=== PATIENT | male | born 1955 | race Caucasian/White ===

== ENCOUNTER 2018-05-23 16:16 | Emergency (ER) | payer OTHER ==
[2018-05-23] MEDS ORDERED: SODIUM CHLORIDE 0.9% 500 ML INFUS.BAG IV ONE (16:23)
--- NOTE | 2018-05-23 16:30 | PDOC ---
History of Present Illness - General Stated Complaint: HYPERTENSION Time Seen by Provider: 05/23/18 16:20 History Source: Patient, EMS Exam Limitations: No Limitations - History of Present Illness Initial Comments: 05/23/18 16:27 This is a 63 YOM with h/o liver, colon, and renal CA (last chemo was in February, on oxycontin for chronic pain), colostomy, nephrostomy, biliary drain, toxic megacolon with perforation, and ulcerative colitis with prior surgical intervention, who p/w SOB since last night without cough, wheezing, difficulty laying down flat, pain, f/c/n/v, black/bloody/white stool, or other symptoms. He has no reported orthopnea. The patient explains that his eyes and skin are always yellow but this is worse than normal over the past 2 days. EMS expressed concern that his BP was 80/50 and they were unable to get an accurate-looking pulse ox on him, so they placed him on the non-rebreather en route. Past History - Past Medical History Allergies/Adverse Reactions: Allergies Allergy/AdvReac Type Severity Reaction Status Date / Time No Known Allergies Allergy Verified 05/23/18 17:45 Home Medications: Ambulatory Orders Unobtainable 04/21/15 GI Disorders: (ulcerative colitis) - Suicide/Smoking/Psychosocial Hx Smoking History: Never smoked Have you smoked in the past 12 months: No Hx Alcohol Use: No Drug/Substance Use Hx: No Substance Use Type: None Hx Substance Use Treatment: No Review of Systems - Review of Systems Able to Perform ROS?: Yes Constitutional: No: Chills, Fever, Unexplained wgt Loss HEENTM: No: Nose Congestion, Throat Pain Respiratory: Yes: Shortness of Breath. No: Cough Cardiac (ROS): No: Chest Pain, Palpitations ABD/GI: No: Constipated, Diarrhea, Nausea, Vomiting : No: Burning, Dysuria Musculoskeletal: No: Back Pain, Neck Pain Integumentary: No: Bruising, Rash Neurological: No: Headache, Numbness, Tingling, Weakness, Dizziness Endocrine: No: Unexplained Weight Gain, Unexplained Weight Loss Procedures - Central Line Central Line Lumen: triple Central Line Position: femoral (L) Anesthesia: 1% Lidocaine Amount of anesthesia (ccs): 4 Complications: none Post Central Line Insertion: sutured, good blood return Progress: Patient tolerated well Heart Score/ECG Review #1 05/23/18 16:44 Sinus tachycardia, rate 104, normal axis and intervals, no ST-T changes ED Treatment Course - LABORATORY CBC & Chemistry Diagram: 05/23/18 17:00 05/23/18 17:00 - RADIOLOGY Radiology Studies Ordered: Category Date Time Status CHEST X-RAY PORTABLE* [RAD] Stat Radiology 05/23/18 16:20 Ordered Medical Decision Making - Medical Decision Making 05/23/18 16:31 Pt with presents with SOB in the setting of jaundice, malaise, hypotension notes by EMS. Initial Vital Signs Temp Pulse Resp BP Pulse Ox 97.7 F 105 H 22 H 78/58 L 100 05/23/18 16:20 05/23/18 16:20 05/23/18 16:20 05/23/18 16:20 05/23/18 16:20 Exam: As noted in Physical Exam section. DDX IBNLT: viral (ABCDE), toxins (e.g. alcohol/acetaminophen/ cap mushroom) , autoimmune, biliary tract obstruction, fatty liver disease, cirrhosis (e.g. h/ o EtOH dependence or HCC), SBP, hemolysis W/U ordered: CBCD CMP Mg Phos Coags T&S Ammonia UA UCx EKG CXR TX ordered: IVF, Vancomycin, Zosyn EKG: Reviewed; results as noted in ECG Review section. CXR: Nothing acute on my preliminary read. Laboratory Tests 05/23/18 05/23/18 05/23/18 17:00 17:00 17:00 WBC 21.8 H RBC 3.61 L Hgb 10.6 L Hct 31.0 L D MCV 85.9 MCH 29.3 MCHC 34.1 RDW 19.7 H Plt Count 90 L D MPV 10.6 D Absolute Neuts (auto) 20.7 H Neutrophils % 94.8 H D Neutrophils % (Manual) 88.0 H Band Neutrophils % 6.0 Lymphocytes % 0.9 L Lymphocytes % (Manual) 2.0 L Monocytes % 3.5 L Monocytes % (Manual) 4 Eosinophils % 0.5 Basophils % 0.3 Nucleated RBC % 0 Hypochromia 1+ Platelet Estimate Decreased Anisocytosis 1+ Microcytosis 1+ PT with INR 24.70 H INR 2.08 H PTT (Actin FS) 34.4 Sodium 138 Potassium 4.1 Chloride 95 L Carbon Dioxide 21 Anion Gap 22 H BUN 71 H Creatinine 4.9 H Creat Clearance w eGFR 12.10 Random Glucose 150 H Lactic Acid Calcium 10.3 H Total Bilirubin 20.1 H* AST 400 H ALT 221 H Alkaline Phosphatase 325 H Ammonia Creatine Kinase 439 H Creatine Kinase Index 1.4 CK-MB (CK-2) Cancelled Troponin I Total Protein 6.5 Albumin 2.1 L Blood Type Antibody Screen 05/23/18 05/23/18 05/23/18 17:00 17:00 17:00 WBC RBC Hgb Hct MCV MCH MCHC RDW Plt Count MPV Absolute Neuts (auto) Neutrophils % Neutrophils % (Manual) Band Neutrophils % Lymphocytes % Lymphocytes % (Manual) Monocytes % Monocytes % (Manual) Eosinophils % Basophils % Nucleated RBC % Hypochromia Platelet Estimate Anisocytosis Microcytosis PT with INR INR PTT (Actin FS) Sodium Potassium Chloride Carbon Dioxide Anion Gap BUN Creatinine Creat Clearance w eGFR Random Glucose Lactic Acid 5.0 H* Calcium Total Bilirubin AST ALT Alkaline Phosphatase Ammonia Creatine Kinase Creatine Kinase Index CK-MB (CK-2) Troponin I 0.03 Total Protein Albumin Blood Type A POSITIVE Antibody Screen Positive H 05/23/18 05/23/18 17:00 17:00 WBC RBC Hgb Hct MCV MCH MCHC RDW Plt Count MPV Absolute Neuts (auto) Neutrophils % Neutrophils % (Manual) Band Neutrophils % Lymphocytes % Lymphocytes % (Manual) Monocytes % Monocytes % (Manual) Eosinophils % Basophils % Nucleated RBC % Hypochromia Platelet Estimate Anisocytosis Microcytosis PT with INR INR PTT (Actin FS) Sodium Potassium Chloride Carbon Dioxide Anion Gap BUN Creatinine Creat Clearance w eGFR Random Glucose Lactic Acid Calcium Total Bilirubin AST ALT Alkaline Phosphatase Ammonia < 10 L Creatine Kinase Creatine Kinase Index CK-MB (CK-2) Cancelled Troponin I Total Protein Albumin Blood Type Antibody Screen Reassessment: Patient states unchanged, exam unchanged. Vital Signs Temperature 97.5 F L 05/23/18 19:02 Pulse Rate 98 H 05/23/18 19:02 Respiratory Rate 16 05/23/18 19:02 Blood Pressure 82/66 L 05/23/18 19:02 O2 Sat by Pulse Oximetry (%) 100 05/23/18 19:02 Lt femoral vein CVC placed without issue, good blood return, flushes, see Procedures section. The Pt is unsafe for discharge at this time. They require further hospital observation, workup, and treatment. 05/23/18 19:11 Spoke with oncology on-call provider Michele Quinteros. Recommends ED-ED transfer and he will call the [facility] ED to inform them to expect the patient. 05/23/18 19:[address] Palumbo who accepts patient in transfer. Pt to be transferred to: [facility] ED Pt accepted in transfer to: Dr. Palumbo Patient informed and consents to transfer. Transfer paperwork completed and signed by all indicated parties. 05/23/18 20:18 BP is 82/64, 99% on RA, HR 96 at this time. EMS crew arrives and transfers Pt to ambulance without issue. Vital Signs Temperature 98.2 F 05/23/18 20:34 Pulse Rate 95 H 05/23/18 20:34 Respiratory Rate 20 05/23/18 20:34 Blood Pressure 82/64 L 05/23/18 20:34 O2 Sat by Pulse Oximetry (%) 100 05/23/18 20:34 *DC/Admit/Observation/Transfer Diagnosis at time of Disposition: Jaundice, SOB (shortness of breath), Metastatic cancer Sepsis Qualifiers: Sepsis type: sepsis due to unspecified organism Qualified Code(s): A41.9 - Sepsis, unspecified organism - Discharge Dispostion Disposition: TRANSFER ACUTE CARE/OTHER HOSP Condition at time of disposition: Guarded - Referrals Referrals: Travon Weaver MS [Primary Care Provider] - - Patient Instructions - Post Discharge Activity - Transfer to Acute Care Facility Receiving Facility: [facility] Accepting Physician:: Dr. Palumbo
--- NOTE | 2018-05-23 16:38 | PDOC ---
Attending Attestation - Resident Resident Name: Judith Gutiérrez - ED Attending Attestation I have performed the following: I have examined & evaluated the patient, The case was reviewed & discussed with the resident, I agree w/resident's findings & plan, Exceptions are as noted - HPI HPI: 63 yo M history liver, colon, and renal CA, colostomy, nephrostomy, biliary drain, UC presents with SOB since last night. Worse with lying flat. Denies abd pain, swelling, f/c, N/V/D. Hypotensive en route with EMS. - Physicial Exam PE: GENERAL: Awake, alert, and fully oriented. Appears ill. +Jaundice. HEAD: No signs of trauma EYES: PERRLA, EOMI, conjunctiva clear. +Scleral icterus. ENT: Auricles normal inspection, hearing grossly normal, nares patent, oropharynx clear without exudates. Dry mucosa NECK: Normal ROM, supple, no lymphadenopathy, JVD, or masses LUNGS: Breath sounds equal, clear to auscultation bilaterally. No wheezes, and no crackles HEART: Regular rate and rhythm, normal S1 and S2, no murmurs, rubs or gallops ABDOMEN: Soft, nontender, normoactive bowel sounds. No guarding, no rebound. No masses. +LLQ colostomy, +watery brown stool in the bag. +Prior stoma to the L mid-abdomen. EXTREMITIES: Normal range of motion, no edema. No clubbing or cyanosis. No cords, erythema, or tenderness NEUROLOGICAL: Cranial nerves II through XII grossly intact. Normal speech. Motor and sensation grossly intact. SKIN: Warm, Dry, normal turgor, no rashes. - Medical Decision Making 05/23/18 16:53 Pt with complex PMH presenting with hypotension. Sepsis workup initiated. Will access port to obtain blood and give IVF, but will also place femoral triple lumen for resuscitation.
[2018-05-23 17:20] LABS: BASO % 0.3 % (0-2.0); EOS % 0.5 % (0-4.5); HEMOGLOBIN 10.6 GM/dL (11.7-16.9); LYMPH % 0.9 % (8-40); MCH 29.3 pg (25.7-33.7); MCHC 34.1 g/dl (32.0-35.9); MEAN CELL VOLUME 85.9 fl (80-96); MEAN PLT VOLUME 10.6 fl (7.5-11.1); MONO % 3.5 % (3.8-10.2); NEUT % 94.8 % (42.8-82.8); PLATELET COUNT 90 K/MM3 (134-434); RBC 3.61 M/mm3 (4.00-5.60); RDW 19.7 % (11.9-15.9); WHITE BLOOD COUNT 21.8 K/mm3 (4.0-10.0)
[2018-05-23 17:34] LABS: INR 2.08 (0.83-1.09); PROTHROMBIN TIME (PATIENT) 24.7 SEC (9.7-13.0)
[2018-05-23 17:37] LABS: ACTIVATED PTT 34.4 SECONDS (25.2-36.5)
[2018-05-23] MEDS ORDERED: PIPERACILLIN/TAZOB 4.5 GM 4.5 GM in DEXTROSE 5%-WATER 100 ML IVPB ONE (17:49)
[2018-05-23] MEDS ORDERED: VANCOMYCIN 1,500 MG in DEXTROSE 5%-WATER - 500 ML IVPB ONE (17:49)
[2018-05-23 17:51] LABS: ALBUMIN 2.1 g/dl (3.4-5.0); ALK PHOS 325 U/L (45-117); ANION GAP 22 MMOL/L (8-16); BLOOD UREA NITROGEN 71 mg/dL (7-18); CALCIUM 10.3 mg/dL (8.5-10.1); CHLORIDE 95 mmol/L (98-107); CO2 21 mmol/L (21-32); GLUCOSE,RANDOM 150 mg/dL (74-106); SGPT/ALT 221 U/L (13-61); SODIUM 138 mmol/L (136-145)
[2018-05-23 17:52] VITALS: BMI 20.1
[2018-05-23 17:52] LABS: CREATININE 4.9 mg/dL (0.55-1.3); POTASSIUM 4.1 mmol/L (3.5-5.1); SGOT/AST 400 U/L (15-37); TOT PROT 6.5 g/dl (6.4-8.2)
[2018-05-23] MEDS ORDERED: PIPERACILLIN/TAZOB 4.5 GM 4.5 GM/100 ML BAG IVPB ONE (17:55)
[2018-05-23 18:00] LABS: BILIRUBIN,TOTAL 20.1 mg/dL (0.2-1)
[2018-05-23 18:28] LABS: ANISOCYTOSIS 1+
[2018-05-23 18:29] LABS: PLATELET ESTIMATE DECREASED
[2018-05-23] MEDS ORDERED: ACETAMINOPHEN 1000 MG/100 ML VIAL (NON FORMULARY) IVPB ONE (19:26)
[2018-05-23] MEDS ORDERED: ACETAMINOPHEN INJECTION 100 ML IVPB ONE (20:31)
[2018-05-23 20:39] VITALS: BP 82/64; PULSE 95; TEMP 98.2
--- NOTE | 2018-05-24 10:26 | EKG ---
Test Reason : Blood Pressure : / mmHG Vent. Rate : 104 BPM Atrial Rate : 104 BPM P-R Int : 160 ms QRS Dur : 106 ms QT Int : 350 ms P-R-T Axes : 069 063 079 degrees QTc Int : 460 ms SINUS TACHYCARDIA OTHERWISE NORMAL ECG WHEN COMPARED WITH ECG OF 12-MAR-2015 22:59, PREMATURE VENTRICULAR COMPLEXES ARE NO LONGER PRESENT BASELINE ARTIFACT Confirmed by STACEY DOMINGUEZ MD ([id number]) on 05/24/2018 10:26:30 AM Referred By: Confirmed By:STACEY DOMINGUEZ MD
== END 2018-05-23 20:45 | disposition short-term general hospital (02) ==
LOC: JER 16:16
PROC: 06H033Z Insertion of Infusion Device into Inferior Vena Cava, Percutaneous Approach (ICD-10-PCS; principal; 2018-05-23)
PROC: 3E03329 Introduction of Other Anti-infective into Peripheral Vein, Percutaneous Approach (ICD-10-PCS; 2018-05-23)
PROC: 3E03329 Introduction of Other Anti-infective into Peripheral Vein, Percutaneous Approach (ICD-10-PCS; 2018-05-23)
PROC: 3E033NZ Introduction of Analgesics, Hypnotics, Sedatives into Peripheral Vein, Percutaneous Approach (ICD-10-PCS; 2018-05-23)
DX: A41.9 Sepsis, unspecified organism (principal); Z85.038 Personal history of other malignant neoplasm of large intestine; Z85.05 Personal history of malignant neoplasm of liver; Z85.528 Personal history of other malignant neoplasm of kidney; Z93.3 Colostomy status; Z93.6 Other artificial openings of urinary tract status; Z96.89 Presence of other specified functional implants
CPT/HCPCS: 36415; 36558; 71045-TC-FY; 80053; 82140; 82550; 83605; 84484; 85025; 85610; 85730; 86850; 86870; 86900; 86901; 86902; 87040; 87186; 93005; 93010; 96365; 96367; 96375; 99285-25; J0131